=== PATIENT | male | born 1965 | race Caucasian/White ===

== ENCOUNTER 2016-12-24 08:36 | Inpatient (IN) | payer OTHER ==
[2016-12-24] MEDS ORDERED: LIDOCAINE 1% 2 ML INJ ONE (09:14)
[2016-12-24 10:06] LABS: % IMMATURE GRANULYOCYTES 0.3 % (0.0-1.1); ABSOLUTE IMMATURE GRANULOCYTES 0.03 10^3/uL (0.00-0.10); ADD DIFF? NO; ADD MORPH? NO; ADD SCAN? NO; ATYPICAL LYMPHOCYTE FLAG 20 (0-99); FRAGMENT RBC FLAG 0 (0-99); HEMATOCRIT 48.8 % (40.0-51.0); HEMOGLOBIN 16.7 g/dL (13.7-17.5); LEFT SHIFT FLG 0 (0-99); LIPEMIA HEMOLYSIS FLAG 90 (0-99); MEAN CELL HEMOGLOBIN 30.8 pg (27.9-34.1); MEAN CELL HEMOGLOBIN CONCENTR. 34.2 g/dL (32.4-36.7); MEAN PLATELET VOLUME 9.6 fL (8.7-11.7); PLATELET CLUMPS FLAG 0 (0-99); PLATELET COUNT 212 10^3/uL (150-400); RED BLOOD CELL COUNT 5.42 10^6/uL (4.40-6.38); RED CELL DISTRIBUTION WIDTH 14.4 % (11.5-15.2)
[2016-12-24] MEDS ORDERED: PROPOFOL 200 MG/20 ML VIAL ONE (10:10)
[2016-12-24] MEDS ORDERED: fentaNYL 100 MCG/2 ML INJ ONE ×4 (10:10→14:09)
[2016-12-24] MEDS ORDERED: MIDAZOLAM 2 MG/2 ML VIAL ONE (10:14)
[2016-12-24] MEDS ORDERED: OXYMETAZOLINE 30 ML NASAL SPRAY EACHNARE ONE (10:15)
[2016-12-24] MEDS ORDERED: BUPIVACAINE 0.5% 30 ML SDV ONE (10:16)
[2016-12-24 10:19] LABS: ANION GAP 10 mEq/L (8-16); CARBON DIOXIDE 28 mEq/l (22-31); CHLORIDE 104 mEq/L (97-110); GLOMERULAR FILTRATION RATE > 60; GLUCOSE 89 mg/dL (70-100); POTASSIUM 4.3 mEq/L (3.5-5.2); SODIUM 142 mEq/L (134-144)
[2016-12-24] MEDS ORDERED: LIDOCAINE 1% 5 ML SDV ID PRN (10:47)
[2016-12-24] MEDS ORDERED: LR 1,000 ML IV ONE (10:47)
[2016-12-24] MEDS ORDERED: ROCURONIUM 50 MG/5 ML VIAL ONE (11:46)
[2016-12-24] MEDS ORDERED: SUGAMMADEX SODIUM 200 MG/2 ML VIAL IVP ONE (11:56)
[2016-12-24] MEDS ORDERED: ONDANSETRON 4 MG/2 ML VIAL ONE ×2 (12:24→12:58)
[2016-12-24] MEDS ORDERED: METOCLOPRAMIDE 10 MG/2 ML VIAL ONE (12:24)
--- NOTE | 2016-12-24 12:32 | POSTOPPROG ---
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
[2016-12-24] MEDS ORDERED: ONDANSETRON 4 MG/2 ML VIAL IVP PRN (12:34)
[2016-12-24] MEDS ORDERED: NALOXONE HCL 0.4 MG/ML INJ IVP PRN (12:34)
[2016-12-24] MEDS ORDERED: CREON 24 CAP PO PRN (15:30)
[2016-12-24] MEDS: D5W 1/2 NS W/ 20 KCl/L 1,000 ML IV SCH ×2 (15:40→23:39)
[2016-12-24] MEDS: HYDROmorphONE/DILAUDID 6 MG/30 ML PCA IV PRN ×2 (15:45→19:06)
[2016-12-24] MEDS: KETOROLAC 15 MG/1 ML SDV IVP SCH ×2 (17:40→23:49)
[2016-12-24] MEDS ORDERED: OXYMETAZOLINE 30 ML NASAL SPRAY EACHNARE PRN (20:01)
[2016-12-24] MEDS: METOCLOPRAMIDE 10 MG/2 ML VIAL IVP SCH (23:49)
[2016-12-25] MEDS: KETOROLAC 15 MG/1 ML SDV IVP SCH ×4 (05:23→23:27)
[2016-12-25] MEDS: METOCLOPRAMIDE 10 MG/2 ML VIAL IVP SCH ×4 (05:23→23:28)
[2016-12-25 05:37] LABS: HEMATOCRIT 41.2 % (40.0-51.0); HEMOGLOBIN 13.8 g/dL (13.7-17.5)
[2016-12-25 06:00] LABS: ANION GAP 7 mEq/L (8-16); CALCIUM 8.8 mg/dL (8.5-10.4); CARBON DIOXIDE 30 mEq/l (22-31); CHLORIDE 103 mEq/L (97-110); GLOMERULAR FILTRATION RATE > 60; GLUCOSE 109 mg/dL (70-100); POTASSIUM 4.5 mEq/L (3.5-5.2); SODIUM 140 mEq/L (134-144)
[2016-12-25] MEDS: D5W 1/2 NS W/ 20 KCl/L 1,000 ML IV SCH ×3 (07:09→23:27)
--- NOTE | 2016-12-25 10:47 | SOAPPROG ---
SOAP Progress Note Assessment/Plan: Assessment: 51yo male s/p lap assisted partial gastrectomy POD 1 Tolerating pain, has not ambulated yet, passing gas PE awake alert Chest CTA B/L Abdomen incisions clean, small amount of serosag discharge on lap incisions Plan: will discuss advancing to clears with Dr Peralta encouraged ambulation 12/25/16 10:41 Objective: Vital Signs Temp Pulse Resp BP Pulse Ox 36.6 C 62 12 89/62 L 91 L 12/25/16 10:00 12/25/16 10:00 12/25/16 10:00 12/25/16 10:00 12/25/16 10:00 Laboratory Results 12/25/16 05:22 12/25/16 05:22 12/24/16 12/25/16 12/26/16 05:59 05:59 05:59 Intake Total 3557.5 Output Total 2165 Balance 1392.5 ICD10 Worksheet Patient Problems: Problems Problem Status Onset Appendicitis, acute Acute
[2016-12-25] MEDS: FLUTICASONE NASAL 120 SPRAYS/16 GM MDI EACHNARE SCH (16:05)
[2016-12-25] MEDS: HYDROmorphONE/DILAUDID 6 MG/30 ML PCA IV PRN (16:18)
[2016-12-25] MEDS ORDERED: HYDROCODONE/APAP 5/325 TAB PO PRN (20:58)
[2016-12-26] MEDS: D5W 1/2 NS W/ 20 KCl/L 1,000 ML IV SCH (05:33)
[2016-12-26] MEDS: METOCLOPRAMIDE 10 MG/2 ML VIAL IVP SCH ×2 (05:33→12:49)
[2016-12-26] MEDS: KETOROLAC 15 MG/1 ML SDV IVP SCH ×3 (05:33→17:59)
[2016-12-26] MEDS: ENOXAPARIN 40 MG/0.4 ML SYR SC SCH (10:01)
[2016-12-26] MEDS: FLUTICASONE NASAL 120 SPRAYS/16 GM MDI EACHNARE SCH ×2 (10:02→16:41)
--- NOTE | 2016-12-26 10:11 | SOAPPROG ---
SOAP Progress Note Assessment/Plan: Assessment: 51 yo male s/p lap assisted partial gastrectomy POD 2 Pain controlled, tolerating clears, passing gas, walked around this morning PE awake alert Chest cta anteriorly Cor rrr Abdomen non-distended,non-tender, incisions cdi, +BS Plan: may advance diet this afternoon encouraged ambulation 12/26/16 10:11 Objective: Vital Signs Temp Pulse Resp BP Pulse Ox 36.7 C 55 L 16 96/70 L 96 12/26/16 08:00 12/26/16 08:00 12/26/16 08:00 12/26/16 08:00 12/26/16 08:00 Laboratory Results 12/25/16 05:22 12/25/16 05:22 12/25/16 12/26/16 12/27/16 05:59 05:59 05:59 Intake Total 3557.5 1503 340 Output Total 2165 1550 800 Balance 1392.5 -47 -460 ICD10 Worksheet Patient Problems: Problems Problem Status Onset Appendicitis, acute Acute
[2016-12-26] MEDS: ACETAMINOPHEN 325 MG TAB PO PRN ×2 (12:54→16:43)
[2016-12-26] MEDS ORDERED: ACETAMINOPHEN 325 MG TAB PO PRN (13:06)
[2016-12-26] MEDS: PSEUDOEPHEDRINE HCL 30 MG TAB PO PRN (16:53)
[2016-12-26] MEDS: METHYL SALICYLATE/MENTHOL OINTMENT TP PRN (17:59)
[2016-12-27] MEDS: KETOROLAC 15 MG/1 ML SDV IVP SCH ×4 (00:05→18:05)
[2016-12-27 07:29] VITALS: BP 113/65; PULSE 56; RESP 16; TEMP 97.2; O2SAT 98
[2016-12-27] MEDS: ENOXAPARIN 40 MG/0.4 ML SYR SC SCH (08:13)
[2016-12-27] MEDS: FLUTICASONE NASAL 120 SPRAYS/16 GM MDI EACHNARE SCH (08:15)
[2016-12-27] MEDS: METHYL SALICYLATE/MENTHOL OINTMENT TP PRN (08:16)
[2016-12-27] MEDS: PSEUDOEPHEDRINE HCL 30 MG TAB PO PRN (16:43)
--- NOTE | 2016-12-28 12:21 | GDS ---
[f rep st] DISCHARGE SUMMARY REASON FOR ADMISSION: Elective surgery for gastric mass. HOSPITAL COURSE: The patient is a very pleasant 51-year-old male who came to the hospital to underg o surgery with Dr. Peralta on 12/24/2016, laparoscopic-assisted partial gastrectomy. 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 The patient's hospital course was fairly unremarkable as he tolerated diet fairly quickly and was di scharged with instructions to follow up in our office the following week. The pathology was not rev iewed with him during his hospital course stay as it was not reported until after his discharge. Th is will need to be reviewed at the patient's followup appointment next week. /[id number]/MODL
== END 2016-12-27 18:27 | disposition home or self-care (01) | DRG 544 ==
LOC: F3N 08:36 → F3E 15:01
PROVIDERS: ADMIT Surgery; ATTEND Surgery
PROC: 0DB64ZX Excision of Stomach, Percutaneous Endoscopic Approach, Diagnostic (ICD-10-PCS; principal; 2016-12-24 10:30)
DX: C49.A2 Gastrointestinal stromal tumor of stomach (principal)
CPT/HCPCS: J1170; J1650; J1885; J1956; J2250; J2405; J2704; J2765; J3010

== ENCOUNTER → 2017-07-24 | Outpatient (CLI) | payer OTHER | LOC: FIMAGING 08:16 | PROVIDERS: ATTEND Internal Medicine Gastroenterology | DX: R10.13 Epigastric pain (principal); Z90.3 Acquired absence of stomach [part of] ==

== ENCOUNTER → 2017-08-20 | Outpatient (CLI) | payer OTHER | LOC: FIMAGING 07:57 | PROVIDERS: ATTEND Internal Medicine Gastroenterology | DX: D49.0 Neoplasm of unspecified behavior of digestive system (principal); R51 Headache | CPT/HCPCS: 78264; A9541 ==

== ENCOUNTER → 2018-05-15 | Outpatient (CLI) | payer OTHER | LOC: FIMAGING 14:35 | PROVIDERS: ATTEND Allergy & Immunology Allergy | DX: R63.4 Abnormal weight loss (principal) ==

== ENCOUNTER → 2018-05-26 | Outpatient (CLI) | payer OTHER | LOC: FLAB 15:59 | PROVIDERS: ATTEND Family Medicine | DX: R06.02 Shortness of breath (principal); M51.34 Other intervertebral disc degeneration, thoracic region; M41.84 Other forms of scoliosis, thoracic region; M25.78 Osteophyte, vertebrae ==